=== PATIENT | female | born 1990 | race Hispanic/Latino ===

== ENCOUNTER 2022-07-24 18:44 | Emergency (ER) | payer OTHER, SELFPAY ==
[2022-07-24] MEDS ORDERED: Lidocaine 1% w/Epinephrine 1:100K 20 ML VIAL ONE (19:27)
== END 2022-07-24 20:07 | disposition home or self-care (01) ==
LOC: ERS 18:44
DX: O72.1 Other immediate postpartum hemorrhage (principal)
CPT/HCPCS: 12002

== ENCOUNTER 2024-11-07 14:10 | Outpatient (CLI) | payer OTHER | END 2024-11-07 14:11 | disposition home or self-care (01) | LOC: BICULT 14:10 | PROVIDERS: ATTEND Family Medicine | DX: O09.892 Supervision of other high risk pregnancies, second trimester (principal); Z3A.22 22 weeks gestation of pregnancy | CPT/HCPCS: 76805 ==